=== PATIENT | female | born 1980 | race Caucasian/White ===

== ENCOUNTER 2021-02-13 08:49 | Outpatient (CLI) | payer BC, SELFPAY ==
--- NOTE | ~2021-02-13 | MMUS_ITS ---
EXAMINATION: MM diagnostic will BI w brittany, US breast LT limited HISTORY: Palpable lump in the lower inner quadrant of the left breast TECHNIQUE: Craniocaudal, mediolateral, and mediolateral oblique 3-D tomosynthesis images of the jose ts were performed and synthetic 2-D images were generated. CAD analysis was submitted and interpreted . High resolution limited left breast ultrasound was performed. COMPARISON: 08/07/2017 BREAST PARENCHYMAL COMPOSITION: The breasts are heterogeneously dense, which may obscure small masses . FINDINGS: MAMMOGRAPHIC FINDINGS: There is no evidence of suspicious mass, calcification, or architectural distortion in either breast malignancy. There has been no suspicious interval change. No suspicious mammographic correlate is kain ntified for the patient's reported left breast lump. ULTRASOUND: There is no evidence of focal abnormal solid or cystic mass in the vicinity of the reported palpable abnormality of concern. IMPRESSION: 1. No specific mammographic or sonographic correlate is identified for the reported palpable abnormal ity of concern. Further evaluation at this time should be based on clinical assessment. Continued fol low-up physical examination is recommended. 2. Recommend routine screening mammography beginning at age 40. BI-RADS Category 1: Negative Reviewed, dictated and finalized at location A. IMPRESSION: 1. No specific mammographic or sonographic correlate is identified for the repo rted palpable abnormality of concern. Further evaluation at this time should be based on clinical assessment. Continued follow-up physical examination is petra mmended. 2. Recommend routine screening mammography beginning at age 40. BI-RADS Category 1: Negative
== END 2021-02-13 08:50 ==
PROVIDERS: Visit Provider Advanced Practice Midwife
DX: N63.20 Unspecified lump in the left breast, unspecified quadrant (principal)
CPT/HCPCS: 76642; 77062; 77066; G0279

== ENCOUNTER 2023-06-22 08:13 | Emergency (ER) | payer BC, SELFPAY ==
[2023-06-22 08:28] VITALS: BP 114/49; PULSE 68; RESP 16; TEMP 37.2; O2SAT 100
--- NOTE | 2023-06-22 08:36 | ED.DENTAL ---
HPI - Dental/Oral General Chief complaint: Dental/Oral Stated complaint: abscess tooth Time Seen by Provider: 06/22/23 08:33 Source: patient and RN notes reviewed Mode of arrival: ambulatory Limitations: no limitations History of Present Illness HPI Narrative: Patient presents today complaining of right upper dental pain and abscess x2 days, worse since yesterday. States this pain is causing a headache as well. She does have cold sensitivity to the affected tooth. Denies fever, difficulty swallowing. Currently rates her pain 7/10 and has been taking Tylenol and ibuprofen without much relief. Patient does have a dentist, but has not yet made an appointment. Related Data Allergies Allergy/AdvReac Type Severity Reaction Status Date / Time No Known Drug Allergies Allergy Other Verified 06/22/23 08:20 Review of Systems Review of Systems: CONSTITUTIONAL: Denies body aches, fever, chills, or sweats. EYES: Denies visual changes, redness, or discharge. ENT: Denies rhinorrhea, congestion, sore throat, or otalgia.+ dental pain/abscess CARDIOVASCULAR: Denies chest pain, palpitations, or edema. RESPIRATORY: Denies cough or dyspnea. GASTROINTESTINAL: Denies abdominal pain, nausea, vomiting, or diarrhea. GENITOURINARY: Denies dysuria or hematuria. SKIN: Denies rash, itching, or wounds. MUSCULOSKELETAL: Denies back pain, joint pain, or myalgia. NEUROLOGIC: Denies headache, numbness, tingling, or weakness. PSYCH: Denies depression or anxiety. PMFSH Comments At time of signature, I have reviewed and agree with nursing past medical, surgical, social and family history unless otherwise noted. Please see nursing chart for further information. There is no relevant family history pertinent to the presenting complaint Exam Narrative: GENERAL: Well-appearing, well-nourished, and in no acute distress. HEAD: Normocephalic, atraumatic. EYES: EOMI. No redness or drainage. Conjunctivae normal. ENT: Mucous membranes pink and moist. Tenderness to tooth #7 with small pustule in the adjacent superior gumline. NECK: Normal AROM. Supple. No lymphadenopathy. CHEST: No respiratory distress. EXTREMITIES: Normal range of motion. No edema. SKIN: Warm, dry, no rash. Capillary refill normal. Normal skin turgor. NEURO: No focal deficits. Alert and oriented x3. Gait steady. PSYCH: Normal affect. No signs of depression or anxiety. Course Course Level of Care: Express Care Visit Vital Signs Vital signs: Vital Signs Temperature 99.0 F 06/22/23 08:28 Pulse Rate 68 06/22/23 08:28 Respiratory Rate 16 06/22/23 08:28 Blood Pressure 114/49 L 06/22/23 08:28 Pulse Oximetry 100 06/22/23 08:28 Oxygen Delivery Room Air 06/22/23 08:28 Temperature 99.0 F 06/22/23 08:28 Pulse Rate 68 06/22/23 08:28 Respiratory Rate 16 06/22/23 08:28 Blood Pressure 114/49 L 06/22/23 08:28 Pulse Oximetry 100 06/22/23 08:28 Oxygen Delivery Room Air 06/22/23 08:28 Reviewed MDM - Dental/Oral MDM Narrative Medical decision making narrative: Patient will be placed on a course of amoxicillin for her dental abscess. Instructed to call her dentist on Saturday for follow-up appointment. Agrees with plan. Anticipatory guidance given. Differential Diagnosis Differential diagnosis: Likely gingival abscess, dental caries, toothache, dental abscess and fracture of tooth Critical Care Time Critical Care Time Critical Care Time: No Discharge Plan Discharge Clinical Impression: Dental abscess Patient Disposition: Home, Self-Care Condition: Stable Instructions: Antibiotic Form, Dental Abscess (ED) Additional Instructions: Please take the antibiotics as prescribed until gone. Continue Tylenol or ibuprofen at home for pain. Follow-up with your dentist as soon as possible for further evaluation and treatment. Prescriptions: New amoxicillin 875 mg tablet 875 mg PO Q12H 10 Days Qty: 20 0RF Follow-up/Referrals
== END 2023-06-22 08:41 | disposition home or self-care (01) ==
PROVIDERS: Emergency Provider Nurse Practitioner
DX: K04.7 Periapical abscess without sinus (principal); Z86.16 Personal history of COVID-19
CPT/HCPCS: 99213; G0463

== ENCOUNTER 2024-11-02 09:06 | Outpatient (CLI) | payer BC, OTHER, SELFPAY ==
--- NOTE | ~2024-11-02 | MMUS_ITS ---
EXAMINATION: MM diagnostic will BI w brittany, US breast LT limited HISTORY: Left breast lump TECHNIQUE: 3-D tomosynthesis images of the breasts were performed and synthetic 2-D images were gener ated. CAD analysis was submitted and interpreted. High resolution limited left breast ultrasound was performed. COMPARISON: 02/13/2021 BREAST PARENCHYMAL COMPOSITION:Dense: The breasts are heterogeneously dense, which may obscure small masses. FINDINGS: MAMMOGRAPHIC FINDINGS: Parenchymal pattern of both breasts is unchanged. No suspicious mass lesion or distortion. No suspici ous microcalcification. ULTRASOUND: Sonographic imaging performed at the left breast 5:00 position of the area of palpable concern. No so lid or cystic lesion identified in this region. No sonographic correlate seen at the area of clinical concern. IMPRESSION: No evidence for malignancy. No mammographic or sonographic correlate seen at the area of clinical co ncern in left breast. BI-RADS Category 1: Negative Reviewed, dictated and finalized at location . IMPRESSION: No evidence for malignancy. No mammographic or sonographic correlate seen at t he area of clinical concern in left breast. BI-RADS Category 1: Negative IMPRESSION: No evidence for malignancy. No mammographic or sonographic correlate seen at t area of clinical concern in left breast. BI-RADS Category 1: Negative
== END 2024-11-02 09:07 | disposition home or self-care (01) ==
PROVIDERS: PCP Student in an Organized Health Care Education/Training Program; Visit Provider Student in an Organized Health Care Education/Training Program
DX: N63.20 Unspecified lump in the left breast, unspecified quadrant (principal)
CPT/HCPCS: 76642; 77062; 77066; G0279